=== PATIENT | female | born 1985 | race Caucasian/White ===

== ENCOUNTER 2019-01-08 08:40 | Emergency (ER) | payer MEDICAID ==
--- NOTE | 2019-01-08 10:07 | ED Physician Documentation ---
PD HPI URI - Stated complaint Stated Complaint: CONGESTION/COLD SX - Chief complaint Chief Complaint: Heent - History obtained from History obtained from: Patient - History of Present Illness Timing - onset: How many weeks ago (2) Timing duration: Weeks (2 weeks of cough, wheezing, congestion and also now ear pain and more purulent sputum.) Timing details: Gradual onset, Still present Associated symptoms: Ear pain, Productive cough. No: Fever, NVD Contributing factors: No: Sick contact, Travel, COPD / asthma Similar symptoms before: Has not had sx before Review of Systems Constitutional: reports: Fatigue. denies: Fever Nose: reports: Congestion Throat: denies: Sore throat Cardiac: reports: Chest pain / pressure (with coughing) Respiratory: reports: Cough, Wheezing GI: denies: Nausea, Vomiting, Diarrhea Skin: denies: Rash PD PAST MEDICAL HISTORY - Past Medical History Cardiovascular: None Respiratory: None - Past Surgical History HEENT: Tonsil/Adenoidectomy, Other - Present Medications Home Medications: Ambulatory Orders Medication Instructions Recorded Confirmed Albuterol Sulf [Ventolin Hfa 1 - 2 puffs INH Q4HR PRN #1 inhaler 01/08/19 Inhaler] Amoxicillin 500 mg PO TID #21 capsule 01/08/19 Benzonatate [Tessalon Perle] 100 mg PO TID PRN #30 capsule 01/08/19 Cetirizine [ZyrTEC] 10 mg PO DAILY #15 tablet 01/08/19 dexAMETHasone [Decadron] 4 mg PO DAILY #7 tablet 01/08/19 - Allergies Allergies/Adverse Reactions: Allergies Allergy/AdvReac Type Severity Reaction Status Date / Time acetaminophen [From Vicodin] Allergy Hives Verified 01/08/19 08:53 hydrocodone [From Vicodin] Allergy Hives Verified 01/08/19 08:53 - Social History Does the pt smoke?: Yes Smoking Status: Current every day smoker - Immunizations Immunizations are current?: Yes PD ED PE NORMAL - Vitals Vital signs reviewed: Yes - General General: Alert and oriented X 3, No acute distress, Well developed/nourished - HEENT HEENT: Pharynx benign. No: Ears normal (right okay. Left with redness and fluid behind eardrum. Canal okay. ) - Neck Neck: Supple, no meningeal sign, No adenopathy - Cardiac Cardiac: RRR, No murmur - Respiratory Respiratory: Clear bilaterally - Derm Derm: Normal color, Warm and dry Results - Vitals Vitals: Oxygen O2 Source Room air PD MEDICAL DECISION MAKING - ED course Complexity details: considered differential, d/w patient Departure - Departure Disposition: 01 Home, Self Care Clinical Impression: Upper respiratory infection Qualifiers: URI type: unspecified URI Qualified Code(s): J06.9 - Acute upper respiratory infection, unspecified Otitis media Qualifiers: Otitis media type: suppurative Chronicity: acute Laterality: left Recurrence: non-recurrent Spontaneous tympanic membrane rupture: without spontaneous rupture Qualified Code(s): H66.002 - Acute suppurative otitis media without spontaneous rupture of ear drum, left ear Condition: Stable Record reviewed to determine appropriate education?: Yes Instructions: ED Upper Resp Infec Abx Tx, ED Otitis Media Acute Adult Prescriptions: Albuterol Sulf [Ventolin Hfa Inhaler] 1 - 2 puffs INH Q4HR PRN #1 inhaler PRN Reason: Shortness Of Air/Wheezing Amoxicillin 500 mg PO TID #21 capsule Benzonatate [Tessalon Perle] 100 mg PO TID PRN #30 capsule PRN Reason: Cough Cetirizine [ZyrTEC] 10 mg PO DAILY #15 tablet dexAMETHasone [Decadron] 4 mg PO DAILY #7 tablet Comments: Hydrated. Use amoxicillin antibiotic 3 times a day for a week. Decadron steroid for inflammation of the mucosal tissue daily for a week. Cetirizine antihistamine to decrease fluid and congestion. Use Tessalon if needed for cough suppression. Use albuterol inhaler 2 puffs 4 times a day to help promote breathing and decrease coughing. Use it extra times as needed for tightness. I would anticipate improvement over the next several days and recheck if not well better over her several days to week. Discharge Date/Time: 01/08/19 10:52
[2019-01-08] MEDS ORDERED: DEXAMETHASONE 10 MG/ML VIAL PO STA (10:28)
[2019-01-08] MEDS ORDERED: BENZONATATE 100 MG CAPSULE PO STA (10:28)
[2019-01-08] MEDS ORDERED: CHERRY SYRUP 10 ML UDC PO ONE (10:28)
[2019-01-08] MEDS ORDERED: AMOXICILLIN 250 MG CAPSULE PO STA (10:28)
[2019-01-08 10:42] VITALS: BP 132/99
== END 2019-01-08 10:52 | disposition home or self-care (01) ==
LOC: ED 08:40
DX: J06.9 Acute upper respiratory infection, unspecified (principal); H66.002 Acute suppurative otitis media without spontaneous rupture of ear drum, left ear; F17.200 Nicotine dependence, unspecified, uncomplicated
CPT/HCPCS: 99284; A9270